=== PATIENT | female | born 1985 | race Caucasian/White ===

== ENCOUNTER → 2019-01-07 | Outpatient (CLI) | payer BC ==
--- NOTE | 2019-01-07 14:57 | XR ---
Lumbar spine HISTORY: Pain 3 views the lumbar spine There is a levoscoliosis centered at L3. 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 Surgical clips present in the right upper quadrant. Disc spaces are maintained. IMPRESSION: Scoliosis.
--- NOTE | 2019-01-07 14:58 | XR ---
Thoracic spine HISTORY: Pain 3 views of the thoracic spine Correlation to lumbar spine same date Dextroscoliosis is centered at approximately T9-10. Thoracic vertebral bodies show preserved height a nd bone mineralization. Disc spaces are maintained. IMPRESSION: Scoliosis.
--- NOTE | 2019-01-07 14:59 | XR ---
Right knee HISTORY: Pain in patella area 3 views of the right knee Bone mineralization, joint spaces and alignment are maintained. No fracture or dislocation. No eviden t joint effusion. IMPRESSION: Normal right knee.
== END | disposition home or self-care (01) ==
LOC: RADXRYALE 09:47
PROVIDERS: ATTEND Family Medicine
DX: M41.85 Other forms of scoliosis, thoracolumbar region (principal); M54.6 Pain in thoracic spine; M54.5 Low back pain; M25.561 Pain in right knee
CPT/HCPCS: 72072; 72100